=== PATIENT | female | born 1970 | race Hispanic/Latino ===

== ENCOUNTER 2017-09-13 05:42 | Emergency (ER) | payer SELFPAY ==
[2017-09-13] MEDS ORDERED: NA CHLORIDE 0.9% 1,000 ML ONE (06:38)
[2017-09-13] MEDS ORDERED: ONDANSETRON 4 MG/2 ML VIAL ONE (06:38)
[2017-09-13] MEDS ORDERED: FAMOTIDINE 20 MG/2 ML VIAL IV ONE (06:38)
[2017-09-13] MEDS ORDERED: FENTANYL CITR 100 MCG/2 ML ONE (06:38)
[2017-09-13 07:06] LABS: Absolute Lymphocytes (CBC) 1.5 K/uL (0.7-4.9); Absolute Neutrophil 13.4 K/uL (1.8-8.0); Basophils % 0.4 % (0-1.3); Eosinophils % 0.9 % (0-4.4); Hematocrit 44.4 % (36.0-45.0); Lymphocytes % 9.5 % (15.3-44.8); MCH 30.1 pg (27.0-35.0); MPV 8.8 fL (7.6-11.3); RBC Red Blood Cell Count 4.98 M/uL (3.86-4.86)
[2017-09-13 07:10] LABS: Protime INR 1.06
[2017-09-13 07:40] LABS: Bilirubin Direct 0.2 mg/dL (0-0.2); Bilirubin Total 0.8 mg/dL (0.3-1.2); Magnesium 1.7 mg/dL (1.8-2.5); Protein, Total 7.5 g/dL (6.0-8.3)
[2017-09-13 07:42] LABS: CKMB Creatine Kinase MB 1.3 ng/ml (0.3-4.0)
[2017-09-13] MEDS ORDERED: METOCLOPRAMIDE 10 MG/2mL INJ ONE (08:09)
[2017-09-13] MEDS ORDERED: ACETAMINOPHEN 500 MG TAB ONE (08:10)
[2017-09-13] MEDS ORDERED: DIPHENHYDRAMINE 50 MG/ML VIAL ONE (08:10)
[2017-09-13] MEDS ORDERED: KETOROLAC 30 MG/ML INJ ONE (08:29)
[2017-09-13] MEDS ORDERED: DICYCLOMINE HCL 20 MG/2 ML AMP IM ONE (08:30)
--- NOTE | 2017-09-13 08:54 | RAD REPORT ---
EXAM DESCRIPTION: Jonathan Single View09/13/2017 6:37 am CLINICAL HISTORY: Chest pain COMPARISON: none FINDINGS: The lungs appear clear of acute infiltrate. The heart is normal size IMPRESSION: No acute abnormalities displayed
--- NOTE | 2017-09-13 09:15 | RAD REPORT ---
EXAM DESCRIPTION: CT - Abdomen Pelvis W Contrast - 09/13/2017 8:50 am CLINICAL HISTORY: Abdominal pain. Vomiting and diarrhea COMPARISON: None. TECHNIQUE: Computed axial tomography of the abdomen and pelvis was obtained. 100 cc Isovue-300 is ad ministered intravenously. Oral contrast was given. All CT scans are performed using dose optimization technique as appropriate and may include automated exposure control or mA/KV adjustment according to patient size. FINDINGS: Mild fatty infiltration liver is present. The gallbladder has been removed. Spleen, pancreas, adrenals and kidneys appear unremarkable. The appendix is normal caliber. There is no evidence of diverticulitis The wall of the sigmoid colon is mildly.Portions of the wall of the ascending colon are moderately di lated. A hysterectomy has been performed. A 42 millimeter cystic structure is present within the anterior le ft pelvis IMPRESSION: Mild to moderate thickening of the wall of portions the colon consistent with colitis 42 millimeter cystic structure within the anterior left pelvis probably representing an ovarian cyst. Followup pelvic ultrasound in couple of months is recommended to assess stability/resolution
[2017-09-13 09:16] LABS: Urine Bacteria 20-50 /HPF (<20); Urine Culture Reflex Order REFLEXED; Urine RBC <5 /HPF (NONE SEEN)
[2017-09-13 09:19] LABS: Urine Blood 2+ (NEG); Urine Glucose NEGATIVE (NEG); Urine Protein NEGATIVE (NEG); Urine Specific Gravity 1.015 (1.005-1.030)
[2017-09-13] MEDS ORDERED: CIPROFLOXACIN HCL 500 MG TAB ONE (09:41)
[2017-09-13] MEDS ORDERED: metroNIDAZOLE 500 MG TABLET ONE (09:41)
[2017-09-13] MEDS ORDERED: Ciprofloxacin 200mg IV 0 MG/0 ML IV.SOLN. IV ONE (09:41)
--- NOTE | 2017-09-13 09:46 | EDPHYS ---
Physician Documentation [facility] Name: Arabella Montemayor Age: 46 yrs Sex: Female : 1970 Arrival Date: 09/13/2017 Time: 05:43 Bed 18 Private MD: Geovanni Gastelum HPI: 09/13 06:29 This 46 yrs old Female presents to ER via Ambulatory with complaints of magui Abdominal Pain, Headache. 06:29 The patient complains of pain to the forehead. magui 09:32 The patient presents with abdominal pain in the periumbilical area. Onset: [facility] symptoms/episode began/occurred acutely. Associated signs and symptoms: Pertinent positives: nausea and vomiting, diarrhea. Patient states coworkers have had similar symptoms. . 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 - Social history:: Smoking status: Patient/guardian denies using tobacco. - Ebola Screening: : No symptoms or risks identified at this time. ROS: 06:29 Constitutional: Negative for fever, chills, and weight loss, Eyes: Negative for injury, magui pain, redness, and discharge, ENT: Negative for injury, pain, and discharge, Neck: Negative for injury, pain, and swelling, Cardiovascular: Negative for chest pain, palpitations, and edema, Respiratory: Negative for shortness of breath, cough, wheezing, and pleuritic chest pain, Back: Negative for injury and pain, : Negative for injury, bleeding, discharge, and swelling, MS/Extremity: Negative for injury and deformity, Skin: Negative for injury, rash, and discoloration, Psych: Negative for depression, anxiety, suicide ideation, homicidal ideation, and hallucinations, Allergy/Immunology: Negative for hives, rash, and allergies, Endocrine: Negative for neck swelling, polydipsia, polyuria, polyphagia, and marked weight changes, Hematologic/Lymphatic: Negative for swollen nodes, abnormal bleeding, and unusual bruising. 06:29 Abdomen/GI: Positive for abdominal pain, nausea and vomiting, diarrhea, of the right upper quadrant and left upper quadrant. Exam: 06:29 Head/Face: Normocephalic, atraumatic. Eyes: Pupils equal round and reactive to light, magui extra-ocular motions intact. Lids and lashes normal. Conjunctiva and sclera are non-icteric and not injected. Cornea within normal limits. Periorbital areas with no swelling, redness, or edema. ENT: Nares patent. No nasal discharge, no septal abnormalities noted. Tympanic membranes are normal and external auditory canals are clear. Oropharynx with no redness, swelling, or masses, exudates, or evidence of obstruction, uvula midline. Mucous membranes moist. Neck: Trachea midline, no thyromegaly or masses palpated, and no cervical lymphadenopathy. Supple, full range of motion without nuchal rigidity, or vertebral point tenderness. No Meningismus. Chest/axilla: Normal chest wall appearance and motion. Nontender with no deformity. No lesions are appreciated. Cardiovascular: Regular rate and rhythm with a normal S1 and S2. No gallops, murmurs, or rubs. Normal PMI, no JVD. No pulse deficits. Respiratory: Lungs have equal breath sounds bilaterally, clear to auscultation and percussion. No rales, rhonchi or wheezes noted. No increased work of breathing, no retractions or nasal flaring. Back: No spinal tenderness. No costovertebral tenderness. Full range of motion. Female : Normal external genitalia. Skin: Warm, dry with normal turgor. Normal color with no rashes, no lesions, and no evidence of cellulitis. MS/ Extremity: Pulses equal, no cyanosis. Neurovascular intact. Full, normal range of motion. Neuro: Awake and alert, GCS 15, oriented to person, place, time, and situation. Cranial nerves II-XII grossly intact. Motor strength 5/5 in all extremities. Sensory grossly intact. Cerebellar exam normal. Normal gait. Psych: Awake, alert, with orientation to person, place and time. Behavior, mood, and affect are within normal limits. 06:29 Constitutional: The patient appears febrile. 06:29 Abdomen/GI: Inspection: distension, Bowel sounds: normal, Liver: no appreciated palpable abnormalities, Hernia: not appreciated, tenderness, that is mild, that is moderate. Vital Signs: 06:01 BP 131 / 68; Pulse 86; Resp 18; Temp 100(TE); Pulse Ox 99% ; Weight 93.44 kg; Height 5 ea ft. 4 in. (162.56 cm); Pain 10/10; 07:15 BP 129 / 71; Pulse 72; Resp 18; Pulse Ox 99% on R/A; Pain 10/10; em 08:00 BP 152 / 76; Pulse 77; Resp 16; Pulse Ox 99% on R/A; em 09:02 BP 118 / 58; Pulse 64; Resp 16; Pulse Ox 99% on R/A; Pain 0/10; em 10:00 BP 105 / 64; Pulse 61; Resp 16; Temp 99(O); Pulse Ox 99% on R/A; Pain 0/10; em 06:01 Body Mass Index 35.36 (93.44 kg, 162.56 cm) ea MDM: 05:50 Patient medically screened. [facility] 06:32 Data reviewed: vital signs, nurses notes, lab test result(s), EKG, radiologic studies, [facility] CT scan, plain films. 09:32 Data reviewed: lab test result(s), radiologic studies, CT scan, plain films. jason Counseling: I had a detailed discussion with the patient and/or guardian regarding: the historical points, exam findings, and any diagnostic results supporting the discharge/admit diagnosis, lab results, radiology results, the need for outpatient follow up, to return to the emergency department if symptoms worsen or persist or if there are any questions or concerns that arise at home. Response to treatment: the patient's symptoms have markedly improved after treatment. 09/13 06:10 Order name: Amylase, Serum 09/13 06:10 Order name: Basic Metabolic Panel 09/13 06:10 Order name: CBC with Diff 09/13 06:10 Order name: Creatinine for Radiology 09/13 06:10 Order name: Hepatic Function 09/13 06:10 Order name: Lipase 09/13 06:10 Order name: Urine Microscopic Only 09/13 06:10 Order name: Basic Metabolic Panel 09/13 06:10 Order name: BNP; Complete Time: 08:02 09/13 06:10 Order name: CBC with Diff 09/13 06:10 Order name: Ckmb; Complete Time: 08:02 09/13 06:10 Order name: CPK; Complete Time: 08:02 09/13 06:10 Order name: LFT's 09/13 06:10 Order name: Magnesium; Complete Time: 08:02 09/13 06:10 Order name: PT-INR; Complete Time: 07:15 09/13 06:10 Order name: Ptt, Activated; Complete Time: 07:15 09/13 06:10 Order name: Troponin (emerg Dept Use Only); Complete Time: 08:02 09/13 06:10 Order name: XRAY Chest (1 view); Complete Time: 09:16 09/13 06:10 Order name: Amylase Level; Complete Time: 08:02 EDNJ 09/13 06:10 Order name: Basic Metabolic Panel; Complete Time: 08:02 EDNJ 09/13 06:10 Order name: CBC with Automated Diff; Complete Time: 07:15 EDNJ 09/13 06:10 Order name: Creatinine (Radiology Only); Complete Time: 08:02 EDNJ 09/13 06:10 Order name: Liver (Hepatic) Function; Complete Time: 08:02 EDNJ 09/13 06:10 Order name: Lipase; Complete Time: 08:02 EDNJ 09/13 06:24 Order name: CT Abd/Pelvis - W/Contrast; Complete Time: 09:16 [facility] 09/13 06:27 Order name: Urine Culture [facility] 09/13 08:41 Order name: Urine Dipstick--Ancillary (enter results) 09/13 06:10 Order name: EKG; Complete Time: 06:11 09/13 06:10 Order name: Cardiac monitoring; Complete Time: 09:37 09/13 06:10 Order name: EKG - Nurse/Tech; Complete Time: 07:12 09/13 06:10 Order name: IV Saline Lock; Complete Time: 07:12 09/13 06:10 Order name: Labs collected and sent; Complete Time: 07:12 09/13 06:10 Order name: O2 Per Protocol; Complete Time: 07:12 09/13 06:10 Order name: O2 Sat Monitoring; Complete Time: 07:12 09/13 06:10 Order name: Urine Dipstick-Ancillary (obtain specimen); Complete Time: 08:36 ea Administered Medications: 06:37 Drug: NS 0.9% 1000 ml Route: IV; Rate: 1 bolus; Site: right antecubital; ea 07:35 Follow up: IV Status: Completed infusion; IV Intake: 1000ml em 06:37 Drug: fentaNYL (PF) 25 mcg Route: IVP; Site: right antecubital; ea 07:34 Follow up: Response: No adverse reaction; Pain is decreased em 06:37 Drug: Zofran 4 mg Route: IVP; Site: right antecubital; ea 07:34 Follow up: Response: No adverse reaction em 07:11 Drug: Pepcid 20 mg Route: IVP; Site: right antecubital; ea 07:35 Follow up: Response: No adverse reaction em 08:16 Drug: Tylenol 1000 mg Route: PO; em 08:53 Follow up: Response: No adverse reaction em 08:19 Drug: Reglan 10 mg Route: IVP; Site: right antecubital; ss 08:53 Follow up: Response: No adverse reaction; Pain is decreased em 08:21 Drug: diphenhydrAMINE 12.5 mg Route: IVP; Site: right antecubital; ss 08:53 Follow up: Response: No adverse reaction em 08:35 Drug: Bentyl 20 mg Route: PO; ss 08:53 Follow up: Response: No adverse reaction; Pain is decreased em 08:36 Drug: Ketorolac 30 mg Route: IVP; Site: right antecubital; ss 08:53 Follow up: Response: No adverse reaction; Pain is decreased em 09:43 Drug: Cipro 500 mg Route: PO; em 10:11 Follow up: Response: No adverse reaction em 09:43 Drug: Flagyl 500 mg Route: PO; em 10:11 Follow up: Response: No adverse reaction em Disposition: 09/13/17 09:45 Discharged to Home. Impression: Colitis, Vomiting, Diarrhea, unspecified. - Condition is Stable. - Discharge Instructions: Food Choices to Help Relieve Diarrhea, Adult, Diarrhea, Nausea and Vomiting. - Prescriptions for ondansetron 4 mg Oral tablet,disintegrating - take 1 tablet by ORAL route every 4-6 hours followed by 2 additional 8 mg doses at 8 hour intervals; 30 tablet. Bentyl 20 mg Oral Tablet - take 2 tablet by ORAL route every 6 hours As needed; 40 tablet. Flagyl 500 mg Oral Tablet - take 1 tablet by ORAL route every 6 hours for 10 days; 40 tablet. Ultram 50 mg Oral Tablet - take 1 tablet by ORAL route every 6 hours As needed; 12 tablet. Cipro 500 mg Oral Tablet - take 1 tablet by ORAL route every 12 hours for 7 days; 20 tablet. - Medication Reconciliation Form, Thank You Letter, Antibiotic Education, Prescription Opioid Use, Work release form form. - Follow up: Jagdish Garcia MD; When: 1 - 2 days; Reason: Continuance of care. Addendum: 09/16/2017 10:03 Co-signature as Attending Physician, Geovanni Jiang MD I agree with the assessment and c freeman plan of care. Signatures: Dispatcher [employer] EDNJ Geovanni Jiang MD MD cha Mickail, Joel, PA PA Karthik Calvert, CORN CUTTER OPERATOR CORN CUTTER OPERATOR Vickie Short, RN RN Chiara Weldon RN RN ea Corrections: (The following items were deleted from the chart) 09/13 06:34 06:33 Occult Blood+PA.LAB.BRZ ordered. [facility] 07:13 06:10 IV Saline Lock ordered. [facility] 07:13 06:10 Labs collected and sent ordered. ea 07:13 06:10 Urine Dipstick-Ancillary ordered. [facility] 10:14 09:45 09/13/2017 09:45 Discharged to Home. Impression: Colitis; Vomiting; Diarrhea, em unspecified. Condition is Stable. Forms are Medication Reconciliation Form, Thank You Letter, Antibiotic Education, Prescription Opioid Use. Follow up: Jagdish Garcia; When: 1 - 2 days; Reason: Continuance of care. jason
--- NOTE | 2017-09-13 09:46 | ER ---
Nurse's Notes [facility] Name: Arabella Montemayor Age: 46 yrs Sex: Female : 1970 Arrival Date: 09/13/2017 Time: 05:43 Bed 18 Private MD: Diagnosis: Colitis;Vomiting;Diarrhea, unspecified Presentation: 09/13 06:01 Presenting complaint: Patient states: Pt complaining of abdominal pain, headache and ea chest pain. Reports she started having vomiting and diarrhea last night and continued to have symptoms throughout the night. Transition of care: patient was not received from another setting of care. Onset of symptoms was September 13, 2017. Risk Assessment: Do you want to hurt yourself or someone else? Patient reports no desire to harm self or others. Initial Sepsis Screen: Does the patient meet any 2 criteria? No. Patient's initial sepsis screen is negative. Does the patient have a suspected source of infection? No. Patient's initial sepsis screen is negative. Care prior to arrival: None. 06:01 Method Of Arrival: Ambulatory ea 06:01 Acuity: JIGNA 3 ea Triage Assessment: 06:05 General: Appears uncomfortable, Behavior is crying. Pain: Complains of pain in ea headache, abdomen right and left upper and lower quadrants. Pain currently is 10 out of 10 on a pain scale. Quality of pain is described as aching. EENT: No signs and/or symptoms were reported regarding the EENT system. Neuro: Level of Consciousness is awake, alert, obeys commands, Oriented to person, place, time, situation. Cardiovascular: Patient's skin is warm and dry. Respiratory: Airway is patent Respiratory effort is even, unlabored, Respiratory pattern is regular, symmetrical. GI: Abdomen is non-distended, Bowel sounds present X 4 quads. : No signs and/or symptoms were reported regarding the genitourinary system. Derm: Skin is dry, Skin is normal, Skin temperature is warm. Musculoskeletal: Circulation, motion, and sensation intact. 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 - Social history:: Smoking status: Patient/guardian denies using tobacco. - Ebola Screening: : No symptoms or risks identified at this time. Screenin:08 Abuse screen: Denies threats or abuse. Nutritional screening: No deficits noted. ea Tuberculosis screening: No symptoms or risk factors identified. Fall Risk None identified. Assessment: 06:30 Reassessment: Patient and/or family updated on plan of care and expected duration. Pain ea level reassessed. Patient is alert, oriented x 3, equal unlabored respirations, skin warm/dry/pink. 07:05 General: Appears in no apparent distress. uncomfortable, Behavior is calm, cooperative, em Denies fever. Pain: Complains of pain in umbilical area and forehead Pain currently is 9 out of 10 on a pain scale. Neuro: Level of Consciousness is awake, alert, obeys commands, Oriented to person, place, time, situation, Moves all extremities. Speech is normal, Facial symmetry appears normal, Reports headache frontal area, Denies weakness dizziness. Cardiovascular: Capillary refill < 3 seconds Patient's skin is warm and dry. Respiratory: Airway is patent Respiratory effort is even, unlabored, Respiratory pattern is regular, symmetrical. GI: Abdomen is round non-distended, Stools are reported to be diarrhea. Last BM was September 13, 2017. Reports diarrhea, nausea. : No signs and/or symptoms were reported regarding the genitourinary system. EENT: No signs and/or symptoms were reported regarding the EENT system. Derm: Skin is intact, Skin is pink, warm \T\ dry. Musculoskeletal: Range of motion: intact in all extremities. 07:55 Reassessment: Patient appears in no apparent distress at this time. c/o headache, nimesh Castellano notified, new orders received. 08:20 Reassessment: Patient appears in no apparent distress at this time. c/o abdominal pain, em SIMBA Castellano notified, new orders received. 09:00 Reassessment: Patient appears in no apparent distress at this time. Patient and/or em family updated on plan of care and expected duration. Pain level reassessed. Patient is alert, oriented x 3, equal unlabored respirations, skin warm/dry/pink. Patient denies pain at this time. Patient states feeling better. Patient states symptoms have improved. 10:00 Reassessment: Patient appears in no apparent distress at this time. Patient and/or em family updated on plan of care and expected duration. Pain level reassessed. Patient is alert, oriented x 3, equal unlabored respirations, skin warm/dry/pink. resting comfortably in bed with eyes closed. Vital Signs: 06:01 BP 131 / 68; Pulse 86; Resp 18; Temp 100(TE); Pulse Ox 99% ; Weight 93.44 kg; Height 5 ea ft. 4 in. (162.56 cm); Pain 10/10; 07:15 BP 129 / 71; Pulse 72; Resp 18; Pulse Ox 99% on R/A; Pain 10/10; em 08:00 BP 152 / 76; Pulse 77; Resp 16; Pulse Ox 99% on R/A; em 09:02 BP 118 / 58; Pulse 64; Resp 16; Pulse Ox 99% on R/A; Pain 0/10; em 10:00 BP 105 / 64; Pulse 61; Resp 16; Temp 99(O); Pulse Ox 99% on R/A; Pain 0/10; em 06:01 Body Mass Index 35.36 (93.44 kg, 162.56 cm) ea ED Course: 05:43 Patient arrived in ED. ds1 05:48 Geovanni Jiang MD is Attending Physician. magui 05:58 Chiara Lebron, RN is Primary Nurse. ea 06:00 Patient has correct armband on for positive identification. Bed in low position. Call ea light in reach. Side rails up X2. 06:00 Arm band placed on right wrist. Patient placed in an exam room, on a stretcher, on ea pulse oximetry. 06:03 Triage completed. ea 06:15 Inserted saline lock: 20 gauge in right antecubital area, using aseptic technique. ea Blood collected. 06:33 Gray Borrero PA is PHCP. jmm 06:36 X-ray completed. Portable x-ray completed in exam room. Patient tolerated procedure jb2 well. 06:37 XRAY Chest (1 view) In Process Unspecified. EDMS 07:18 Report given to Karthik HANSEN. ea 08:[address] via wheelchair. 2 08:50 CT Abd/Pelvis - W/Contrast In Process Unspecified. EDMS 09:44 Mea, Nizam, MD is Referral Physician. jmm 10:13 No provider procedures requiring assistance completed. IV discontinued, intact, em bleeding controlled, No redness/swelling at site. Pressure dressing applied. Administered Medications: 06:37 Drug: NS 0.9% 1000 ml Route: IV; Rate: 1 bolus; Site: right antecubital; ea 07:35 Follow up: IV Status: Completed infusion; IV Intake: 1000ml em 06:37 Drug: fentaNYL (PF) 25 mcg Route: IVP; Site: right antecubital; ea 07:34 Follow up: Response: No adverse reaction; Pain is decreased em 06:37 Drug: Zofran 4 mg Route: IVP; Site: right antecubital; ea 07:34 Follow up: Response: No adverse reaction em 07:11 Drug: Pepcid 20 mg Route: IVP; Site: right antecubital; ea 07:35 Follow up: Response: No adverse reaction em 08:16 Drug: Tylenol 1000 mg Route: PO; em 08:53 Follow up: Response: No adverse reaction em 08:19 Drug: Reglan 10 mg Route: IVP; Site: right antecubital; ss 08:53 Follow up: Response: No adverse reaction; Pain is decreased em 08:21 Drug: diphenhydrAMINE 12.5 mg Route: IVP; Site: right antecubital; ss 08:53 Follow up: Response: No adverse reaction em 08:35 Drug: Bentyl 20 mg Route: PO; ss 08:53 Follow up: Response: No adverse reaction; Pain is decreased em 08:36 Drug: Ketorolac 30 mg Route: IVP; Site: right antecubital; ss 08:53 Follow up: Response: No adverse reaction; Pain is decreased em 09:43 Drug: Cipro 500 mg Route: PO; em 10:11 Follow up: Response: No adverse reaction em 09:43 Drug: Flagyl 500 mg Route: PO; em 10:11 Follow up: Response: No adverse reaction em Intake: 07:35 IV: 1000ml; Total: 1000ml. em Outcome: 09:45 Discharge ordered by MD. jmm 10:13 Discharged to home ambulatory. em 10:13 Condition: good 10:13 Discharge instructions given to patient, Instructed on discharge instructions, follow up and referral plans. medication usage, Demonstrated understanding of instructions, follow-up care, medications, Prescriptions given X 5 10:14 Patient left the ED. em Addendum: 09/17/2017 09:34 Addendum: Culture Results: Positive urine culture. No further action required. Bacteria i w sensitive to prescribed antibiotic. Signatures: Dispatcher [employer] EDMS Geovanni Jiang MD MD cha Mickail, Joel, PA PA jmm Buechter, Jesse jb2 Karthik Felder, CYANIDE CASE HARDENER CYANIDE CASE HARDENER Mily Sainz ds1 Rosario Romero RN RN Vickie Oliva RN RN Britney Flores [facility] Chiara Lebron RN RN ea Corrections: (The following items were deleted from the chart) 09/13 09:36 09:00 Reassessment: Patient appears in no apparent distress at this time. Patient em and/or family updated on plan of care and expected duration. Pain level reassessed. Patient is alert, oriented x 3, equal unlabored respirations, skin warm/dry/pink. Patient denies pain at this time. Patient states feeling better. Patient states symptoms have improved. em
--- NOTE | 2017-09-13 14:07 | EKG ---
Test Date: 2017-09-13 Test Time: 07:03:10 American History Teacher: TANA MEASUREMENT RESULTS: Intervals: Rate: 75 NV: 146 QRSD: 86 QT: 380 QTc: 424 [place]: P: 8 NV: 146 QRS: 53 T: 22 INTERPRETIVE STATEMENTS: Normal sinus rhythm Normal ECG Electronically Signed On 09-13-17 14:06:19 CDT by Rommel Cali
== END 2017-09-13 10:14 | disposition home or self-care (01) ==
LOC: ER 05:42
DX: K52.9 Noninfective gastroenteritis and colitis, unspecified (principal); R11.10 Vomiting, unspecified; I10 Essential (primary) hypertension
CPT/HCPCS: 36415; 71045; 74177; 80048; 80076; 81003; 81015; 82150; 82550; 82553; 83690; 83735; 83880; 84484; 85025; 85610; 85730; 87077; 87086; 87088; 87186; 93005; 96361; 96374; 96375; 99284; J0500; J0744; J2405; J2765; J3010; J7030; Q9967